=== PATIENT | female | born 1975 | race Caucasian/White ===

== ENCOUNTER → 2017-05-08 | Outpatient (CLI) | payer BC ==
--- NOTE | 2017-05-08 09:34 | KCIC ---
Indication: Closed fracture of the left elbow and left wrist pain. Time of exam 9:16 AM Left elbow: AP and lateral views of the left elbow were obtained. The alignment is normal. There appears to be a curvilinear lucency within the radial head extending to the articular surface, best seen on the AP view suspicious for a fracture line. Slight prominence of the anterior fat pad is noted, which may indicate a joint effusion. No other suspicious abnormalities are seen. IMPRESSION: Findings suggestive of a fracture involving the radial head, as described. Overall alignment is anatomic. Continued follow-up is recommended. Left wrist: The distal radius and ulna are intact. Carpus appears intact. No fractures are seen. Visualized metacarpals are unremarkable. IMPRESSION: No acute bony abnormality is detected. Electronically signed by: David Sorensen MD (05/08/2017 9:31 AM) [id number]
== END | disposition home or self-care (01) ==
LOC: KCIC 09:10
PROVIDERS: ATTEND Nurse Practitioner Family
DX: M25.532 Pain in left wrist (principal); M25.522 Pain in left elbow
CPT/HCPCS: 73070; 73110

== ENCOUNTER → 2017-05-31 | Outpatient (CLI) | payer BC ==
--- NOTE | 2017-05-31 10:15 | KCIC ---
ELBOW LEFT 2V Indication: Radial head fracture. Follow-up. . Comparison: May 08, 2017. FINDINGS: Intra-articular radial head fracture is again identified. The fracture line is slightly more obscured on today's study. No gross displacement or change in alignment. No new fracture. There may be a persistent joint effusion. IMPRESSION: No significant change in alignment of the intra-articular radial head fracture. Electronically signed by: Polo Kitchen MD (05/31/2017 10:11 AM) [id number]
== END | disposition home or self-care (01) ==
LOC: KCIC 08:53
PROVIDERS: ATTEND Nurse Practitioner Family
DX: S52.122D Displaced fracture of head of left radius, subsequent encounter for closed fracture with routine healing (principal); X58.XXXD Exposure to other specified factors, subsequent encounter
CPT/HCPCS: 73070